=== PATIENT | female | born 1980 | race Caucasian/White ===

== ENCOUNTER 2023-02-04 17:00 | Outpatient (CLI) | payer BC | END 2023-02-04 17:01 | disposition home or self-care (01) | LOC: SLEEPLAB 17:00 | PROVIDERS: ATTEND Family Medicine | DX: G47.33 Obstructive sleep apnea (adult) (pediatric) (principal); G47.10 Hypersomnia, unspecified; F32.A Depression, unspecified; R53.83 Other fatigue; E66.9 Obesity, unspecified; Z68.31 Body mass index [BMI] 31.0-31.9, adult | CPT/HCPCS: 95810 ==